=== PATIENT | female | born 1960 | race Caucasian/White ===

== ENCOUNTER 2019-11-18 11:06 | Emergency (ER) | payer OTHER ==
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
[2019-11-18] MEDS ORDERED: Sodium Chloride 0.9% 1,000 ML IV SCH ×2 (11:45→13:45)
[2019-11-18] MEDS ORDERED: Sodium Chloride 0.9% 10 ML Syringe FLUSH PRN (12:40)
[2019-11-18] MEDS ORDERED: Iopamidol 612 MG/ML 100 ML Bottle IV PRN (12:40)
[2019-11-18] MEDS ORDERED: Sodium Chloride 0.9% 75 ML IV ONE (12:40)
--- NOTE | 2019-11-18 13:31 | CT ---
Abdomen Pelvis w Cont CLINICAL HISTORY: Left-sided abdominal pain COMPARISON: None. TECHNIQUE: Axial tomographic images are obtained from the dome of the diaphragm to the pubic symphysis without IV contrast enhancement. Oral contrast was used. Auto dosage reduction and iterative reconstruction techniques employed. FINDINGS: The lung bases are clear. The liver shows no mass or biliary dilatation. The gallbladder has a normal contour. The spleen has a normal size and shape. The pancreas shows no mass or inflammatory change. The adrenal glands appear normal bilaterally. The kidneys show no mass, stones or hydronephrosis. The ureters have normal course and contour. The bladder has a normal contour. There is a density in the uterus which appears to be a uterine fibroid. There is diverticulosis with some thickening of the descending colon and proximal sigmoid. There is some stranding in the surrounding fat. There is questionable thickening of the transverse colon. There is some fluid in the cul-de-sac The aorta has a normal contour. There is no suspicious retroperitoneal adenopathy. IMPRESSION: Diverticulosis with moderate thickening of the descending colon and sigmoid. There may be some mild thickening of the transverse colon. Findings are most consistent with right lower quadrant diverticulitis. An element of pancolitis is not excluded Fibroid uterus.
[2019-11-18] MEDS ORDERED: Levofloxacin/Dextrose 5%-Water 500 MG in Premix Bag 1 BAG IV ONE (13:36)
[2019-11-18] MEDS ORDERED: metroNIDAZOLE/Normal Saline 500 MG in Premix Bag 1 BAG IV ONE (13:37)
== END 2019-11-18 15:00 | disposition home or self-care (01) ==
LOC: JP.ED 11:06
DX: K57.32 Diverticulitis of large intestine without perforation or abscess without bleeding (principal); Z79.899 Other long term (current) drug therapy
CPT/HCPCS: 36415; 74177; 80053; 81001; 85025; 86140; 96361; 96365; 96368; 99284; J1956; J3490; J7030; J7050; Q9967